=== PATIENT | male | born 1950 | race Caucasian/White ===

== ENCOUNTER 2017-09-20 20:04 | Emergency (ER) | payer BC, MEDICARE ==
--- NOTE | 2017-09-20 20:54 | ER Document Report ---
HPI - HPI Patient complains to provider of: cut hand Onset: This afternoon Pain Level: 1 Context: 67 yo male whose tetanus is current cut left medial hand over thumb MC on timber nail. Associated Symptoms: None Exacerbated by: Denies Relieved by: Denies - ROS ROS below otherwise negative: Yes Systems Reviewed and Negative: Yes All other systems reviewed and negative Past Medical History - General Information source: Patient - Social History Smoking Status: Never Smoker Frequency of alcohol use: None Drug Abuse: None Lives with: Family Family History: Reviewed & Not Pertinent - Past Medical History Cardiac Medical History: Reports: Hx Hypercholesterolemia, Hx Hypertension GI Medical History: Reports: Hx Gastroesophageal Reflux Disease Past Surgical History: Reports: Hx Orthopedic Surgery - ACL Vertical Provider Document - CONSTITUTIONAL Agree With Documented VS: Yes Exam Limitations: No Limitations General Appearance: No Apparent Distress - INFECTION CONTROL TRAVEL OUTSIDE OF THE [place] IN LAST 30 DAYS: No - HEENT HEENT: Normocephalic - NECK Neck: Supple - RESPIRATORY O2 Sat by Pulse Oximetry: 96 - MUSCULOSKELETAL/EXTREMETIES Musculoskeletal/Extremeties: MAEW, FROM - N/V intact - NEURO Level of Consciousness: Awake, Alert - DERM Integumentary: Laceration - see procedure note Course - Vital Signs Vital signs: Temp Pulse Resp BP Pulse Ox 98.8 F 70 16 186/105 H 96 09/20/17 20:08 09/20/17 20:08 09/20/17 20:08 09/20/17 20:08 09/20/17 20:08 Procedures - Laceration/Wound Repair Left Hand Time completed: 22:01 Wound length (cm): 2 Wound's Depth, Shape: Linear Laceration pre-procedure: Sterile drapes applied Anesthetic type: 1% Lidocaine Volume Anesthetic (mLs): 4 Wound explored: Clean Irrigated w/ Saline (mLs): 60 Wound Repaired With: Sutures Suture Size/Type: 4:0, Prolene Number of Sutures: 3 - Vertical mattress Layer Closure?: No Post-procedure wound care: Sterile dressing applied Post-procedure NV exam normal: Yes Complications: No Discharge - Discharge Clinical Impression: Left hand cut repair Condition: Good Disposition: HOME, SELF-CARE Instructions: Acetaminophen, Antibiotic Ointment Protection ([facility]), Laceration Care ([facility]) Additional Instructions: Leave this dressing on for 2 days then removed unless there is increased pain to the wound Keep dry Tylenol for discomfort Suture removal in 9 days Return to the emergency room sooner if there is any signs of infection
[2017-09-20 21:16] VITALS: BP 148/86
[2017-09-20] MEDS ORDERED: LIDOCAINE 1% INJ-PF (10 MG/ML) 30 ML SDV INJ ONE (21:17)
== END 2017-09-20 22:18 | disposition home or self-care (01) ==
LOC: ER 20:04
PROC: 0HQGXZZ Repair Left Hand Skin, External Approach (ICD-10-PCS; principal; 2017-09-20)
DX: S61.412A Laceration without foreign body of left hand, initial encounter (principal); E78.00 Pure hypercholesterolemia, unspecified; I10 Essential (primary) hypertension; W45.0XXA Nail entering through skin, initial encounter
CPT/HCPCS: 99282